=== PATIENT | male | born 1965 | race Caucasian/White ===

== ENCOUNTER → 2018-02-04 | Outpatient (CLI) | payer BC ==
[~2018-02-04] MED LIST: PROHANCE 279.3MG/ML 15ML VIAL (A9576) As Ordered; PROHANCE 279.3MG/ML 5ML VIAL (A9576) As Ordered
== END ==
LOC: M RAD 13:03
DX: H93.3X1 Disorders of right acoustic nerve (principal)
CPT/HCPCS: A9576

== ENCOUNTER → 2025-03-15 | Outpatient (CLI) | payer OTHER ==
[~2025-03-15] MED LIST changes: +CRES20TA OR; +LEXA1TAB OR; -PROHANCE 279.3MG/ML 15ML VIAL (A9576) As Ordered; -PROHANCE 279.3MG/ML 5ML VIAL (A9576) As Ordered; +TRAZ50TA OR
[2025-03-15 18:00] LABS: ALT/SGPT 25.0 U/L (7.0-40); AST/SGOT 19.0 U/L (<34)
== END ==
LOC: M LAB 15:52
PROVIDERS: ATTEND Otolaryngology
DX: B37.0 Candidal stomatitis (principal)

== ENCOUNTER → 2025-04-13 | Outpatient (CLI) | payer OTHER | LOC: M PLARAD 09:37 | PROVIDERS: ATTEND Otolaryngology | DX: D33.3 Benign neoplasm of cranial nerves (principal) ==

== ENCOUNTER → 2025-05-22 | Outpatient (CLI) | payer OTHER | LOC: M RAD 11:57 | PROVIDERS: ATTEND Otolaryngology | DX: I80.8 Phlebitis and thrombophlebitis of other sites (principal); D33.3 Benign neoplasm of cranial nerves ==